=== PATIENT | male | born 2000 | race Caucasian/White ===

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

== ENCOUNTER 2019-06-19 19:26 | Emergency (ER) | payer BC ==
--- OUTSIDE RECORDS SUMMARY | 2019-06-19 19:40 | XMS REPORT | Continuity of Care Document ---
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 Tablets needed History Medications Clindamycin HCL 1 by mouth four 28caps Elizabeth Villafana, 03/20/2019 - 300mg times a day x 7 N.P. 06/05/2019 Capsules days Immunizations CPT Code Status Date Vaccine Lot # [id number] Given 05/02/2018 Influenza Vac, Quadrivalent, Split, 0.5mL Dosage, [id number] Im Use 58681 Given 06/14/2017 Influenza Vac, Quadrivalent, Split, 0.5mL Dosage, [id number] Im Use 93202 Given 05/10/2017 Tdap (Adacel) Ages 7 And Above Only 37030 Given 04/26/2017 Menactra/Menveo Meningococcal Vaccine [id number] 82012 Given 06/11/2016 Influenza Vac, Quadrivalent, Split, 0.5mL Dosage, [id number] Im Use 10660 Given 04/24/2015 Influenza Vac, Quadrivalent, Split, 0.5mL Dosage, [id number] Im Use Q2038 Given 11/15/2013 Fluzone Trivalent Immunization [id number] 44211 Given 04/03/2013 HPV Vaccine (Gardasil) 3 Dose Schedule 39679 Given 11/21/2012 HPV Vaccine (Gardasil) 3 Dose Schedule 62753 Given 2012 HPV Vaccine (Gardasil) 3 Dose Schedule 52219 Given 08/31/2010 Tdap (Adacel) Ages 7 And Above Only 56412 Given 08/31/2010 Menactra/Menveo Meningococcal Vaccine 69431 Given 12/09/2004 MMR Virus Immunization 86663 Given 12/09/2004 DTaP Immunization 6 Yrs & Younger 53398 Given 12/09/2004 Hib HbOC Conjugate 4 Dose Schedule 64628 Given 12/09/2004 IPV / Poliomyelitis Immunization 29041 Given 11/07/2000 DTaP Immunization 6 Yrs & Younger 08053 Given 11/07/2000 Prevnar 13 Pneumococal Conjugate Vaccine 65792 Given 11/07/2000 IPV / Poliomyelitis Immunization 48545 Given 11/02/2000 Hepatitis B Vac Ped/Adolescent 3 Dose Schedule 03809 Given 11/02/2000 Hib HbOC Conjugate 4 Dose Schedule 52135 Given 08/08/2000 MMR Virus Immunization 09003 Given 08/08/2000 Prevnar 13 Pneumococal Conjugate Vaccine 77151 Given 02/05/2000 DTaP Immunization 6 Yrs & Younger 07505 Given 1999 IPV / Poliomyelitis Immunization 04102 Given 1999 DTaP Immunization 6 Yrs & Younger 33010 Given 1999 Hib HbOC Conjugate 4 Dose Schedule 76377 Given 1999 Hepatitis B Vac Ped/Adolescent 3 Dose Schedule 62884 Given 1999 Hepatitis B Vac Ped/Adolescent 3 Dose Schedule 72604 Given 1999 IPV / Poliomyelitis Immunization 67772 Given 1999 IPV / Poliomyelitis Immunization 40762 Given 1999 DTaP Immunization 6 Yrs & Younger 78654 Given 1999 DTaP Immunization 6 Yrs & Younger 08135 Given 1999 Hib HbOC Conjugate 4 Dose Schedule 71906 Refused 06/05/2019 Influenza Vac, Quadrivalent, Split, 0.5mL Dosage, Im Use Vital Signs Date Vital Result Comment 06/05/2019 9:59am Body Temperature 98.8 F Weight 156.38 lb Weight Percentile 52nd Heart Rate 80 /min BP Systolic 110 mmHg BP Diastolic 64 mmHg O2 % BldC Oximetry 98 % 03/20/2019 3:25pm Body Temperature 98.2 F Weight 162.50 lb Weight Percentile 62nd Heart Rate 81 /min BP Systolic 108 mmHg BP Diastolic 68 mmHg O2 % BldC Oximetry 98 % Results Description No Information Available Procedures Description No Information Available Medical Devices Description No Information Available Encounters Type Date Location Provider Dx Diagnosis Office Visit 03/20/2019 Vidya Elizabeth Villafana, L02.511 Cutaneous abscess of 3:00p N.P. RIGHT hand Assessments Date Code Description Provider 06/05/2019 F39 Unspecified mood [affective] disorder Elizabeth Villafana N.PPauly 06/05/2019 Z28.21 Immunization not carried out because of Elizabeth Villafana, N.P. patient refusal 03/20/2019 L02.511 Cutaneous abscess of RIGHT hand Elizabeth Villafana N.P. Plan of Treatment 06/05/2019 - Elizabeth Villafana, N.P.F39 Unspecified mood [affective] disorderComments:stable at this time he fartun cont to use hydroxyzine prn and report worsenning sympsreferal to urologyfor reproductive [id number] Immunization not carried out because of patient refusalComments:patient counseled about benefits of receiving flu vaccinedeclines at this time for non- specific reasonAllReferral:Bessy Salinas DR, Urology Functional Status Description No Information Available Mental Status Description No Information Available Referrals Refer to Reason for Referral Status Appt Date Bessy Salinas DR wantkatie sperm count checked (as per girlfriend's Created OB doctor) also had undecended testicle - surgery age 9 Urology 11 [facility]/ [address] [address] [phone]
--- OUTSIDE RECORDS SUMMARY | 2019-06-19 19:40 | XMS REPORT | Continuity of Care Document ---
:2000 Author Organization [facility] Care Team Providers Name Role Phone ROSE CHOW Primary Care Physician Allergies and Intolerances No Known Allergies Medications RxNorm Medication Dose Route Instructions Start Date End Date Status 19821024 Sulfamethoxazole 800 1 tab oral orally every 12 Active MG / Trimethoprim 160 hours MG Oral Tablet Medications At Time Of Discharge RxNorm Medication Dose Route Instructions Start Date End Date Status 19821024 Sulfamethoxazole 800 1 tab oral orally every 12 Active MG / Trimethoprim 160 hours MG Oral Tablet Problems Code Code System Problem Name Start Date End Date Status 449687432 SNOMED-CT Abrasion 06/12/2013 U Active 471143530 SNOMED-CT AV septal defect U Active 780121415 SNOMED-CT Environment contains allergens U Active Procedures Code Code System Procedure Date 69700774 SNOMED CT Tonsillectomy and adenoidectomy U Results No data in the system Social History Code Code System Social History Observation Description Dates Observed 754041339 SNOMED CT Current Smoking Status Never smoker UNK AdministrativeGender Sex Assigned At Unknown Vital Signs Code Code System Vitals Value Date 8302-2 LOINC Height 70 [in_i] 12/21/2018 03724-0 LOINC Weight 70 kg 12/21/2018 3140-1 LOINC Body surface area Derived from formula 1.87 m2 12/21/2018 20395-0 LOINC BMI (Body Mass Index) 22.3 kg/m2 12/21/2018 8310-5 LOINC Body Temperature 97 [degF] 12/21/2018 8865-8 LOINC Pulse Rate 70 {beats}/min 12/21/2018 9279-1 LOINC Respiratory Rate 18 /min 12/21/2018 8480-6 LOINC BP Systolic 111 mm[Hg] 12/21/2018 8462-4 LOINC BP Diastolic 57 mm[Hg] 12/21/2018 Goals Section No data in the system Health Concerns No data in the systemEncounter Diagnosis Date Code Code System Diagnosis Status Z09 ICD10 ENC F/U EX AFTR CMPL TX NOT MAL FELIX Active Advance Directives *RHIO - CONSENT IS YES Directive 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 Supporting Document Name Address Phone No Directive Type 11/12/2011 1:07:09 Not Specified Not Specified Not Specified None No specified PM Encounters Encounter Diagnosis Location Date ENC F/U EX AFTR CMPL TX NOT MAL FELIX [facility] 12/21/2018 Family History Relationship: Mother Health Problem Age At Onset Notes BP+ - Hypertension (Hypertensive disorder) 22 Years Functional Status Code Functional Condition Code System Date Status Independent adls SNOMED CT 12/21/2018 Active Appears well nourished/hydrated SNOMED CT 12/21/2018 Active Immunizations Vaccine Code Code System Vaccine Name Date Status UP TO DATE Completed Medical Equipment No data in the system Mental Status Code Cognitive Condition Code System Date Status Oriented x [address] 12/21/2018 Active No acute distress SNOMED CT 12/21/[address] 12/21/2018 Active Assessment and Plan Assessments No data in the systemPlan Of Treatment No data in the systemPending Tests No data in the system Hospital Discharge Instructions No data in the system Reason for Visit Reason for Visit Suture Removal
[2019-06-19 19:57] VITALS: BP 112/76
--- NOTE | 2019-06-19 20:58 | UC ---
Laceration HPI - HPI Summary HPI Summary: Patient is a 18yo male presenting with girlfriend with laceration of R palm after he cut himself while cutting up a deer approx 2 hours ago. Patient states it bled immediately. He states bleeding has slowed down but still continues. Denies pain. Denies numbness and tingling. 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 Patient states tetanus is UTD. - History Of Current Complaint Chief Complaint: UCLaceration Stated Complaint: RIGHT HAND LACERATION Hx Obtained From: Patient Pain Intensity: 0 - Allergies/Home Medications Allergies/Adverse Reactions: Allergies Allergy/AdvReac Type Severity Reaction Status Date / Time No Known Allergies Allergy Verified 06/19/19 19:52 PMH/Surg Hx/FS Hx/Imm Hx Previously Healthy: Yes - Surgical History Surgical History: Yes Surgery Procedure, Year, and Place: T&A. traumatic amp right 2nd finger tip - Family History Known Family History: Positive: Hypertension Negative: Cardiac Disease, Diabetes - Social History Alcohol Use: None Substance Use Type: None Smoking Status (MU): Former Smoker Type: Smokeless Tobacco Amount Used/How Often: 1 can every week Have You Smoked in the Last Year: No Household Exposure Type: Cigarettes - Immunization History Most Recent Influenza Vaccination: April 2017 Vaccination Up to Date: Yes Review of Systems All Other Systems Reviewed And Are Negative: No Skin: Positive: Other - laceration of R palm Respiratory: Positive: Negative Cardiovascular: Positive: Negative Gastrointestinal: Positive: Negative. Negative: Vomiting, Nausea Musculoskeletal: Positive: Negative Neurological: Positive: Negative Physical Exam Triage Information Reviewed: Yes Appearance: Well-Appearing, No Pain Distress, Well-Nourished Vital Signs: Initial Vital Signs Temp 98.9 F 06/19/19 19:52 Pulse 90 06/19/19 19:52 Resp 18 06/19/19 19:52 BP 112/76 06/19/19 19:52 Pulse Ox 99 06/19/19 19:52 Vital Signs Reviewed: Yes Eyes: Positive: Conjunctiva Clear ENT: Positive: Pharynx normal Neck: Positive: Supple Respiratory: Positive: No respiratory distress Cardiovascular: Positive: Pulses Normal, Brisk Capillary Refill Musculoskeletal Exam: Normal Musculoskeletal: Positive: Strength Intact, ROM Intact, No Edema Neurological Exam: Other - sensation grossly intact Neurological: Positive: Alert Psychological: Positive: Age Appropriate Behavior Skin: Positive: Other - 1.5cm superficial incomplete avulsion of skin of thenar eminence Laceration Course/Dx - Course/Dx Course Of Treatment: The patient did not require repair of the avulsion. The wound was irrigated, the skin was approximated, and steri strips were applied to keep it in place. A dressing was then applied. Patient tolerated well. Educated him on wound care and provided instructions. Instructed him to return or go to ED with s/s of infection. Patient voiced understanding and agreed with the treatment plan. - Diagnosis Provider Diagnosis: Avulsion of skin of hand Discharge ED - Sign-Out/Discharge Documenting (check all that apply): Patient Departure All imaging exams completed and their final reports reviewed: No Studies - Discharge Plan Condition: Stable Disposition: HOME Patient Education Materials: Laceration (ED) Referrals: [facility] [Outside] - If Needed [facility] [Outside] - If Needed Additional Instructions: Your laceration was cleaned and a dressing was applied. Stitches were not required, but it is important that you refrain from any strenuous activity that may re-open the wound. Keep the area clean and dry for the first 24-48 hours. After that, you may gently wash with soap and warm water daily. Return or go to the emergency room if you experience excessive bleeding, severe pain, redness and warmth of the area, drainage from the wound, fever, nausea, or vomiting. - Billing Disposition and Condition Condition: STABLE Disposition: Home
== END 2019-06-19 21:04 | disposition home or self-care (01) ==
LOC: UCCORT 19:26
DX: S61.411A Laceration without foreign body of right hand, initial encounter (principal); Z87.891 Personal history of nicotine dependence; W26.8XXA Contact with other sharp object(s), not elsewhere classified, initial encounter; Y92.9 Unspecified place or not applicable
CPT/HCPCS: 99212; G0463